=== PATIENT | male | born 1955 | race African-American/Black ===

== ENCOUNTER 2017-02-26 19:24 | Inpatient (IN) | payer MEDICARE ==
[~2017-02-26] VITALS: Ht 157.5 cm; Wt 59.1 kg
[2017-02-26 20:37] LABS: HEMATOCRIT 45.5 % (42.0-54.0); HEMOGLOBIN 15.5 g/dL (13.5-17.5); MCH 32.9 pg (26.0-34.0); MCHC 34.1 g/dL (31.0-37.0); MCV 96.6 fL (80.0-100.0); MEAN PLATELET VOLUME 10.6 fL (7.4-10.4); PLATELET COUNT 160 10x3/uL (130-400); RBC 4.71 10x6/uL (4.20-6.10); RDW 14.7 % (11.5-14.5); WBC 8.2 10x3/uL (4.8-10.8)
[2017-02-26 20:48] LABS: APTT 28.1 SECONDS (22.8-39.4); INR 0.87 (0.85-1.17); PROTIME 11.5 SECONDS (11.6-15.0)
[2017-02-26 21:37] LABS: EOSINOPHILS 2 % (0-7); LYMPHOCYTES 69 % (15-50); NEUTROPHILS 29 % (40-80); PLATELET ESTIMATE NORMAL
[2017-02-26 21:47] LABS: ALBUMIN 3.2 g/dL (3.4-5.0); ANION GAP 11.5 mmol/L (8-16); BILIRUBIN - TOTAL 0.18 mg/dL (0.2-1.3); CALCIUM 8.9 mg/dL (8.5-10.1); CARBON DIOXIDE 29.8 mmol/L (21.0-32.0); CREATININE - SERUM 1.3 mg/dL (0.6-1.3); POTASSIUM - SERUM 4.3 mmol/L (3.5-5.1); PROTEIN - SERUM 7.6 g/dL (6.4-8.2)
[2017-02-27 03:36] VITALS: BP 125/76; Ht 157.5 cm; Wt 59.1 kg
--- NOTE | 2017-02-27 03:50 | NUR ---
ASSESSMENT DONE PER ADMIT PACKET SPLINT TO RT ANKLE FX WITH APRIL WRAP SURROUNDING FOOT IV PATENT LEFT AC OF NS AT 50CC'S/HR. PT REMAINS NPO AT THIS TIME.
[2017-02-27 04:00] VITALS: BP 178/72
[2017-02-27 07:50] VITALS: BP 166/60
[2017-02-27 11:37] LABS: BASOPHILS 0.5 % (0-2); EOSINOPHILS 1.8 % (0-7); HEMATOCRIT 41.9 % (42.0-54.0); HEMOGLOBIN 14.3 g/dL (13.5-17.5); IMMATURE GRANULOCYTES 0.1 % (0-5); MCH 32.7 pg (26.0-34.0); MCHC 34.1 g/dL (31.0-37.0); MCV 95.9 fL (80.0-100.0); MEAN PLATELET VOLUME 10.1 fL (7.4-10.4); NEUTROPHILS 47.6 % (40-80); PLATELET COUNT 165 10x3/uL (130-400); RBC 4.37 10x6/uL (4.20-6.10); RDW 14.5 % (11.5-14.5); WBC 7.8 10x3/uL (4.8-10.8)
[2017-02-27 12:10] LABS: ANION GAP 12.3 mmol/L (8-16); BILIRUBIN - TOTAL 0.7 mg/dL (0.2-1.3); CALCIUM 8.6 mg/dL (8.5-10.1); CARBON DIOXIDE 26.9 mmol/L (21.0-32.0); CREATININE - SERUM 1.2 mg/dL (0.6-1.3); POTASSIUM - SERUM 4.2 mmol/L (3.5-5.1); PROTEIN - SERUM 6.4 g/dL (6.4-8.2)
[2017-02-27 12:26] VITALS: BP 119/62
[2017-02-27 18:04] VITALS: BP 137/68
[2017-02-27] MEDS ORDERED: LASIX20 MG PO (18:52)
[2017-02-27] MEDS ORDERED: KLOR-CON M2020 MEQ PO (18:54)
[2017-02-27] MEDS ORDERED: ISOSORBIDE DINI20 MG PO (18:55)
[2017-02-27] MEDS ORDERED: CYPROHEPTADINE H4 MG PO (18:56)
[2017-02-27] MEDS ORDERED: CARAFATE1 G PO (18:58)
[2017-02-27] MEDS ORDERED: SEROQUEL25 MG PO (18:58)
[2017-02-27] MEDS ORDERED: AMBIEN5 MG PO (18:59)
[2017-02-27] MEDS ORDERED: ZOCOR20 MG PO (18:59)
[2017-02-27] MEDS ORDERED: ZOFRAN4 MG PO (19:00)
[2017-02-27] MEDS ORDERED: COREG25 MG PO (19:00)
[2017-02-27] MEDS ORDERED: MIRALAX527 GM PO (19:02)
[2017-02-27 20:00] VITALS: BP 139/72
[2017-02-28 04:00] VITALS: BP 133/69
[2017-02-28 05:09] LABS: BASOPHILS 0.4 % (0-2); EOSINOPHILS 1.4 % (0-7); HEMATOCRIT 37.6 % (42.0-54.0); HEMOGLOBIN 12.6 g/dL (13.5-17.5); IMMATURE GRANULOCYTES 0.1 % (0-5); LYMPHOCYTES 37.2 % (15-50); MCH 32.1 pg (26.0-34.0); MCHC 33.5 g/dL (31.0-37.0); MCV 95.7 fL (80.0-100.0); MEAN PLATELET VOLUME 10.2 fL (7.4-10.4); NEUTROPHILS 53.9 % (40-80); PLATELET COUNT 159 10x3/uL (130-400); RBC 3.93 10x6/uL (4.20-6.10); RDW 14.4 % (11.5-14.5); WBC 9.7 10x3/uL (4.8-10.8)
[2017-02-28 05:26] LABS: ALBUMIN 2.4 g/dL (3.4-5.0); BILIRUBIN - TOTAL 0.54 mg/dL (0.2-1.3); CALCIUM 7.9 mg/dL (8.5-10.1); CARBON DIOXIDE 26.9 mmol/L (21.0-32.0); CREATININE - SERUM 1.2 mg/dL (0.6-1.3); POTASSIUM - SERUM 3.9 mmol/L (3.5-5.1); PROTEIN - SERUM 6.1 g/dL (6.4-8.2)
--- NOTE | 2017-02-28 07:10 | NUR ---
REPORT RECEIVED FROM INDUCTION HEATING EQUIPMENT SETTER NURSE. CALL LIGHT IN REACH.
--- NOTE | 2017-02-28 08:00 | NUR ---
ASSESSMENT COMPLETED. AM MEDS ADMINISTERED. DILAUDID 1 MG SIVP. CALL LIGHT IN REACH. WILL CONTINUE WITH PLAN OF CARE.
[2017-02-28 08:10] VITALS: BP 153/59
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
--- NOTE | 2017-02-28 10:20 | NUR ---
STATES PAIN IS DOWN TO A 3. CALL LIGHT IN REACH.
--- NOTE | 2017-02-28 11:18 | NUR ---
FSBS 109. NO COVERAGE REQUIRED. DILAUDID 1 MG SIVP PER C/O PAIN OF 10. MVI INITIATED @ 125 CC/HR.
[2017-02-28 12:53] VITALS: BP 125/53
--- NOTE | 2017-02-28 13:03 | NUR ---
PAIN NOW A 6. RLE ELEVATED ON PILLOWS. CALL LIGHT IN REACH.
--- NOTE | 2017-02-28 14:51 | NUR ---
REQUESTING PAIN MEDS FOR PAIN OF 10. DILAUDID 1 MG SIVP.
--- NOTE | 2017-02-28 15:05 | NUR ---
Patient Name: LIOR CHAU Admission Status: ER Accout number: [id number] Admission Date: 02-26-2017 : 1955 Admission Diagnosis:DISPLACED BIMALLEOLAR FRACTURE OF RIGHT LOWER LEG, INIT Attending: KEVIN VINCENT Current LOS: 2 Anticipated DC Date: 03-02-2017 Planned Disposition: Home with Home Health Primary Insurance: [employer] MEDICARE ADV Discharge Planning Comments: CM MET WITH PATIENT REGARDING D/C NEEDS AND PLANS. PATIENT STATED HE LIVES ALONE AND HIS DAUGHTER CHECKS ON HIM. PATIENT LIVES ALONE AND WANTS HOME HEALTH AT DISCHARGE. PATIENT SIGNED THE [facility] FORM FOR [facility]. PATIENT STATED HE IS INDEPENDENT WITH HIS CARE AND HAS A CANE AND SHOWER CHAIR AT HOME. PATIENT THINKS HIS PCP IS AT [facility]. PATIENTS PHARMACY IS [facility] [address]. CM WILL CONTINUE TO FOLLOW PATIENT WITH D/C NEEDS AND PLANS. PCP THINKS [facility] BUT [facility] SAYS [facility] [address]- [phone] NEVILLE ZARCO [phone] Psychological Operations Specialist: Elba Erazo Is the patient Alert and Oriented? Yes 0 * PCP [facility] 0 * Pharmacy [facility] [address] * Preadmission Environment Home Alone 0 * ADLs Independent 0 * Equipment Shower Chair 0 * List name and contact numbers for known caregivers / representatives who currently or will assist patient after discharge: NEVILLE ZARCO [phone] * Community resources currently utilized None 0 * Additional services required to return to the preadmission environment? Yes 0 * Can the patient safely return to the preadmission environment? Yes 0 * Has this patient been hospitalized within the prior 30 days at any hospital? No 0 Grand Total: 0
--- NOTE | 2017-02-28 15:07 | NUR ---
REFERRAL SENT TO [facility]
[2017-02-28 15:50] VITALS: BP 123/75
--- NOTE | 2017-02-28 15:58 | NUR ---
TEMP OF 102.5. TYLENOL IVPB. WILL NOTIFY
--- NOTE | 2017-02-28 17:40 | NUR ---
EATING SUPPER AT THIS TIME.
--- NOTE | 2017-02-28 18:50 | NUR ---
NO CHANGES IN INITIAL ASSESSMENT. CALL LIGHT IN REACH. STILL REFUSES SCDs. CALL LIGHT IN REACH. WILL CONTINUE WITH PLAN OF CARE.
--- NOTE | 2017-02-28 19:15 | NUR ---
RECEIVED CARE FROM DAY NURSE. PT LYING IN BED WITH RIGHT LEG ELEVATED ON PILLOWS X3. FAMILY AT SIDE. FAMILY CONCERENED WITH PT NOT RECEIVEING HOME MEDICATIONS. WILL CALL ER DR TO SEE IF WE CAN CONTINUE.
[2017-02-28 20:00] VITALS: BP 143/68
[2017-03-01] VITALS: BP 151/73
[2017-03-01 04:00] VITALS: BP 129/61
[2017-03-01 04:41] LABS: BASOPHILS 0.3 % (0-2); EOSINOPHILS 0.9 % (0-7); HEMATOCRIT 34.6 % (42.0-54.0); HEMOGLOBIN 11.6 g/dL (13.5-17.5); IMMATURE GRANULOCYTES 0.2 % (0-5); LYMPHOCYTES 23.3 % (15-50); MCHC 33.5 g/dL (31.0-37.0); MCV 95.6 fL (80.0-100.0); MEAN PLATELET VOLUME 10.2 fL (7.4-10.4); MONOCYTES 8.2 % (2-11); NEUTROPHILS 67.1 % (40-80); PLATELET COUNT 155 10x3/uL (130-400); RBC 3.62 10x6/uL (4.20-6.10); RDW 14.5 % (11.5-14.5); WBC 10.2 10x3/uL (4.8-10.8)
[2017-03-01 05:19] LABS: ALBUMIN 2.3 g/dL (3.4-5.0); BILIRUBIN - TOTAL 0.8 mg/dL (0.2-1.3); CALCIUM 7.9 mg/dL (8.5-10.1); CARBON DIOXIDE 26.6 mmol/L (21.0-32.0); CREATININE - SERUM 1.1 mg/dL (0.6-1.3); POTASSIUM - SERUM 3.6 mmol/L (3.5-5.1); PROTEIN - SERUM 5.9 g/dL (6.4-8.2)
--- NOTE | 2017-03-01 05:43 | NUR ---
ASSESSED, PT IS ASLEEP WITH EASY RESPIRATIONS AND NO DISTRESS NOTED. NO O2 ON AND URINAL AT THE BEDSIDE. THE BED IS LOW, RAILS UP X'S 2 WITH THE CALL LIGHT AT HAND.
[2017-03-01] MEDS ORDERED: BACTRIM DS TABL1 TAB PO (06:11)
[2017-03-01] MEDS ORDERED: OXYCODONE HCL5 MG PO (06:11)
[2017-03-01] MEDS ORDERED: HYDROXYZINE HCL50 MG PO (06:11)
[2017-03-01] MEDS ORDERED: ELIQUIS2.5 MG PO (06:11)
--- NOTE | 2017-03-01 07:00 | NUR ---
REPORT RECEIVED, ASSUMED CARE OF PT. RESTING WITH EYES SHUT, EASILY AROUSED. NO NEEDS VOICED AT THIS TIME. BED IN LOWEST POSITION, SIDE RAILS UP X 2, CALL LIGHT WITHIN REACH.
[2017-03-01 08:45] VITALS: BP 154/63
[2017-03-01 13:33] VITALS: BP 131/58
--- NOTE | 2017-03-01 15:24 | NUR ---
LEFT MESSAGE FOR PT DAUGHTER ANA LILIA REGARDING PT DISCHARGE, AWAITING RETURN CALL.
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
--- NOTE | 2017-03-01 19:15 | NUR ---
RECEIVED CARE FROM DAY NURSE. PT LYING IN LOW FOWLERS WITH RIGHT LEG ELEVEATED ON 3 PILLOWS. REPORTS NO NEEDS A THIS TIME. CALL LIGHT AT SIDE.
[2017-03-01 20:00] VITALS: BP 125/51
[2017-03-02] VITALS: BP 130/62
--- NOTE | 2017-03-02 03:00 | NUR ---
PT RESTING QUIETLY, EYES CLOSED. RESP EVEN, UNLABORD. RIGHT LEG ELEVATED ON 3 PILLOWS. CONTINUE DIGITAL COMPUTER OPERATOR'S PLAN OF CARE.
[2017-03-02 04:00] VITALS: BP 122/59
[2017-03-02 06:21] LABS: BASOPHILS 0.2 % (0-2); HEMATOCRIT 31.2 % (42.0-54.0); HEMOGLOBIN 10.5 g/dL (13.5-17.5); IMMATURE GRANULOCYTES 0.2 % (0-5); LYMPHOCYTES 27.8 % (15-50); MCH 32.5 pg (26.0-34.0); MCHC 33.7 g/dL (31.0-37.0); MCV 96.6 fL (80.0-100.0); MEAN PLATELET VOLUME 9.6 fL (7.4-10.4); MONOCYTES 6.1 % (2-11); NEUTROPHILS 64.7 % (40-80); PLATELET COUNT 173 10x3/uL (130-400); RBC 3.23 10x6/uL (4.20-6.10); RDW 14.6 % (11.5-14.5); WBC 8.2 10x3/uL (4.8-10.8)
[2017-03-02 06:40] LABS: ALBUMIN 2.2 g/dL (3.4-5.0); ANION GAP 10.3 mmol/L (8-16); BILIRUBIN - TOTAL 0.9 mg/dL (0.2-1.3); CALCIUM 7.8 mg/dL (8.5-10.1); CARBON DIOXIDE 27.3 mmol/L (21.0-32.0); CREATININE - SERUM 1.3 mg/dL (0.6-1.3); POTASSIUM - SERUM 3.6 mmol/L (3.5-5.1); PROTEIN - SERUM 5.7 g/dL (6.4-8.2)
--- NOTE | 2017-03-02 08:08 | NUR ---
AWAKE AND ALERT. ORIENTED X3. NO C/O AT THIS TIME. LUNGS HAVE CRACKLES IN UPPER LOBES, REPORTS DRY OCCASSIONAL COUGH. SKIN IS INTACT WITHOUT REDNESS EXCEPT INCISION TO RIGHT ANKLE WHICH HAS A DRY INTACT DRESSING IN PLACE. ELEVATED UP ON 4 PILLOWS AT THIS TIME. NEURO CHECKS WNL. IV TO LEFT HAND IS PATENT WITHOUT REDNESS AT INSERTION SITE. DENIES NEEDS.
[2017-03-02 09:11] VITALS: BP 124/56
[2017-03-02 11:59] VITALS: BP 109/48
--- NOTE | 2017-03-02 12:00 | NUR ---
FSBS 82. NO COVERAGE REQUIRED. ENCOURAGED TO EAT ALL OF LUNCH.
--- NOTE | 2017-03-02 12:48 | NUR ---
1000 TC TO DME PROVIDER [facility]. LEFT VOICE MAIL MESSAGE REGARDING DME DELIVERY. NO CALL BACK AT THIS TIME. PLAN FOR PATIENT TO BE DISCHARGED TO DTR'S HOME WHEN DME IS IN PLACE. PATIENT WILL HAVE HOME HEALTH WITH KELLER.
--- NOTE | 2017-03-02 14:12 | NUR ---
REQUESTED AND GIVEN 10MG OXY IR PO FOR C/O RIGHT ANKLE PAIN LEVEL 9. WILL MONITOR. BATH IN PROGRESS PER STAFF.
[2017-03-02 16:19] VITALS: BP 115/51
--- NOTE | 2017-03-02 19:15 | NUR ---
RECEIVED CARE FROM DAY NURSE. PT LYING IN LOW FOWLERS WITH LEG ELEVATED ON 3 PILLOWS. REPORTS NO NEEDS. CALL LIGHT AT SIDE. IV INFUSING PER ORDER.
[2017-03-02 20:00] VITALS: BP 113/51
--- NOTE | 2017-03-02 21:53 | NUR ---
PATIENT RESTING IN BED WITH NO VISIBLE SIGNS OF DISTRESS. CHECKED PT'S BLOOD SUGAR, RESULTS 113. PATIENT REQUESTED PAIN MEDS WHEN DUE. PATIENT DENIES OTHER NEEDS AT THIS TIME. BED IN LOWEST POSITION AND CALL LIGHT WITHIN REACH. ENCOURAGED THE PT TO CALL IF HE HAS NEEDS.
--- NOTE | 2017-03-03 03:17 | NUR ---
RESTING QUITLY WITH EYES CLOSED. RESP EVEN AND UNLABORED. CALL LIGHT AT SIDE. RIGHT FOOT ELEVATED ON 3 PILLOWS. IV INFUSING TO PATENT LEFT HAND PER ORDER.
[2017-03-03 04:00] VITALS: BP 104/50
[2017-03-03 06:50] LABS: BASOPHILS 0.3 % (0-2); EOSINOPHILS 1.1 % (0-7); HEMATOCRIT 31.1 % (42.0-54.0); HEMOGLOBIN 10.3 g/dL (13.5-17.5); IMMATURE GRANULOCYTES 0.1 % (0-5); LYMPHOCYTES 33.6 % (15-50); MCH 31.8 pg (26.0-34.0); MCHC 33.1 g/dL (31.0-37.0); MEAN PLATELET VOLUME 9.5 fL (7.4-10.4); MONOCYTES 6.4 % (2-11); NEUTROPHILS 58.5 % (40-80); PLATELET COUNT 194 10x3/uL (130-400); RBC 3.24 10x6/uL (4.20-6.10); WBC 7.1 10x3/uL (4.8-10.8)
[2017-03-03 07:07] LABS: ALBUMIN 2.1 g/dL (3.4-5.0); ANION GAP 13.5 mmol/L (8-16); BILIRUBIN - TOTAL 0.68 mg/dL (0.2-1.3); CALCIUM 7.8 mg/dL (8.5-10.1); CARBON DIOXIDE 27.8 mmol/L (21.0-32.0); CREATININE - SERUM 1.3 mg/dL (0.6-1.3); POTASSIUM - SERUM 3.3 mmol/L (3.5-5.1); PROTEIN - SERUM 5.9 g/dL (6.4-8.2)
--- NOTE | 2017-03-03 08:00 | NUR ---
REC'D IN LYING SUPINE IN BED AWAKE AND ALERT. RESP EVEN AND UNLABORED WITH NO DISTRESS NOTED. CAN EXPRESS NEEDS AND WANTS. ASSESSMENT COMPLETED. LEG ELEVATED ON PILLOW AT THIS TIME. C/L IN REACH AT BEDSIDE.
--- NOTE | 2017-03-03 09:36 | NUR ---
WAS MEDICATED WITH OXY IR FOR C/O RIGHT ANKLE PAIN RATING 9/10 ON PAIN SCALE. C/L IN REACH AT BEDSIDE.
[2017-03-03 09:57] VITALS: BP 121/58
--- NOTE | 2017-03-03 12:11 | NUR ---
BS 83. NO COVERAGE NEEDED.
[2017-03-03 12:57] VITALS: BP 109/49
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
[2017-03-03 16:31] VITALS: BP 110/52
--- NOTE | 2017-03-03 18:28 | NUR ---
WAS MEDICATED WITH OXY 10 MG PER ORDERS FOR C/O PAIN.C/L IN REACH AT BEDSIDE.
--- NOTE | 2017-03-03 18:54 | NUR ---
PATIENT IN BED RECIEVING DC INSTRUCTIONS WITH FAMILY AT BEDSIDE. NO COMPLAINTS OR PROBLEMS. ROUTE RIDER SUPERVISOR AT BEDSIDE. CALL LIGHT WITHIN REACH.
--- NOTE | 2017-03-03 19:25 | NUR ---
PT WAS DISCHARGE WITH DISCHARGE INSTRUCTION AND WAS IN STABLE CONDITION UPON DISCHARGE WITH PERSONAL BELONGS. PT VOICE UNDERSTANDING. .
--- NOTE | 2017-03-03 20:36 | NUR ---
[phone] MULTIPLE TELEPHONE CALLS TO PT'S DAUGHTER AND [facility] REGARDING DELIVERY OF HOSPITAL BED AND WHEELCHAIR TONIGHT. COMMUNICATION ISSUES W/ FAMILY AND DME PROVIDER. DME WAS DELIVERED THIS PM. PATIENT DISCHARGED TO DAUGHTER'S HOME. [facility] TO FOLLOW. FAMILY PROVIDED TRANSPORTATION TO HOME.
== END 2017-03-03 19:29 | disposition home health service (06) | DRG 493 ==
LOC: EDBD 19:24 → D.ER 19:24 → D.MS 21:54
PROVIDERS: Emergency Medicine; Orthopaedic Surgery; ADMIT Family Medicine
PROC: 0QSG04Z Reposition Right Tibia with Internal Fixation Device, Open Approach (ICD-10-PCS; 2017-02-27)
PROC: 0QSJ04Z Reposition Right Fibula with Internal Fixation Device, Open Approach (ICD-10-PCS; principal; 2017-02-27 14:45)
DX: S82.841A Displaced bimalleolar fracture of right lower leg, initial encounter for closed fracture (principal); F17.203 Nicotine dependence unspecified, with withdrawal; V44.5XXA Car driver injured in collision with heavy transport vehicle or bus in traffic accident, initial encounter; I10 Essential (primary) hypertension; I25.10 Atherosclerotic heart disease of native coronary artery without angina pectoris; E78.5 Hyperlipidemia, unspecified; F10.20 Alcohol dependence, uncomplicated; E87.6 Hypokalemia